=== PATIENT | male | born 1975 ===

== ENCOUNTER 2018-07-30 14:36 | Emergency (ER) | payer OTHER ==
[2018-07-30 14:42] VITALS: BP 150/81; PULSE 74; RESP 16; TEMP 98.2; O2SAT 100
--- NOTE | 2018-07-30 14:53 | ED PDOC ---
HPI: Male Pain Time Seen by Provider: 07/30/18 14:44 Chief Complaint (Nursing): Male Genitourinary Chief Complaint (Provider): dysuria History Per: Patient, Other (Friend at bedside is translating in Burmese as per patient request) History/Exam Limitations: no limitations Onset/Duration Of Symptoms: Days (x3) Current Symptoms Are (Timing): Still Present Associated Symptoms: Urinary Symptoms. denies: Nausea, Vomiting, Diarrhea, Constipation Additional Complaint(s): Mikey Mejía is a 42 year old male who is presenting to the ED for evaluation of dysuria associated with mild suprapubic pain x 3 days ago. Patient states that he has a history of UTIs with his last one 2 months ago, and reports no concern for possible STDs. Patient denies any penile discharge, nausea, vomiting, diarrhea, constipation, or genital rash or lesions. PMD: none Past Medical History Reviewed: Historical Data, Nursing Documentation, Vital Signs Vital Signs: Last Vital Signs Temp 98.2 F 07/30/18 14:39 Pulse 74 07/30/18 14:39 Resp 16 07/30/18 14:39 BP 150/81 07/30/18 14:39 Pulse Ox 100 07/30/18 14:39 - Medical History PMH: No Chronic Diseases - Surgical History Surgical History: No Surg Hx - Family History Family History: States: No Known Family Hx - Living Arrangements Living Arrangements: With Friends/Others - Social History Current smoker - smoking cessation education provided: No Alcohol: None Drugs: Denies - Home Medications Home Medications: Ambulatory Orders Medication Instructions Recorded Ciprofloxacin HCl [Cipro] 500 mg PO BID #14 tablet 07/30/18 - Allergies Allergies/Adverse Reactions: Allergies Allergy/AdvReac Type Severity Reaction Status Date / Time No Known Allergies Allergy Verified 03/06/16 20:18 Review of Systems ROS Statement: Except As Marked, All Systems Reviewed And Found Negative Gastrointestinal: Positive for: Abdominal Pain. Negative for: Nausea, Vomiting, Diarrhea, Constipation Genitourinary Male: Positive for: Dysuria. Negative for: Penile Discharge Skin: Negative for: Rash Physical Exam - Reviewed Nursing Documentation Reviewed: Yes Vital Signs Reviewed: Yes - Physical Exam Appears: Positive for: Well, Non-toxic, No Acute Distress Head Exam: Positive for: ATRAUMATIC, NORMAL INSPECTION, NORMOCEPHALIC Skin: Positive for: Normal Color. Negative for: Rash Eye Exam: Positive for: Normal appearance Gastrointestinal/Abdominal: Positive for: Normal Exam, Soft. Negative for: Tenderness, Distended, Guarding, Rebound Back: Positive for: Normal Inspection Neurologic/Psych: Positive for: Alert, Oriented. Negative for: Motor/Sensory Deficits - Laboratory Results Urine dip results: Negative for: Leukocyte Esterase, Blood, Nitrate, Ketones, Glucose, Bilirubin, Protein - ECG O2 Sat by Pulse Oximetry: 100 (RA) Pulse Ox Interpretation: Normal Medical Decision Making Medical Decision Making: Time: 14:50 Impression: 42 year old male with dysuria Plan: --ED Urine Dipstick --Chylamydia/GC RNA, TMA --Urine Culture Patient with history of UTIs presenting with dysuria. Prescription for Cipro provided, cultures were sent. Patient was referred to clinic for follow-up. Scribe Attestation: Documented by Marilyn Randall, acting as a scribe for Brandy Hamilton PA-C. Provider Scribe Attestation: All medical record entries made by the Scribe were at my direction and personally dictated by me. I have reviewed the chart and agree that the record accurately reflects my personal performance of the history, physical exam, medical decision making, and the department course for this patient. I have also personally directed, reviewed, and agree with the discharge instructions and disposition. Disposition - Clinical Impression Clinical Impression: Dysuria - Patient ED Disposition Is Patient to be Admitted: No Counseled Patient/Family Regarding: Studies Performed, Diagnosis, Need For Followup, Rx Given - Disposition Referrals: [facility] [Outside] Disposition: Routine/Home Disposition Time: 15:31 Condition: STABLE Additional Instructions: Take prescription meds as directed. Drink plenty of fluids. Follow-up with clinic in 2-3 days. Prescriptions: Ciprofloxacin HCl [Cipro] 500 mg PO BID #14 tablet Instructions: Dysuria, Adult (DC) Forms: [facility] [facility] (Burmese) Print Language: PERUVIAN
== END 2018-07-30 16:18 | disposition home or self-care (01) ==
LOC: H.ER 14:36
DX: R30.0 Dysuria (principal)

== ENCOUNTER 2019-02-16 20:00 | Emergency (ER) | payer OTHER ==
[2019-02-16 20:38] VITALS: BP 142/91; PULSE 96; RESP 15; TEMP 98.4; O2SAT 100
--- NOTE | 2019-02-16 21:35 | ED PDOC ---
HPI: Male Pain Time Seen by Provider: 02/16/19 20:58 Chief Complaint (Nursing): Male Genitourinary Chief Complaint (Provider): Urinary frequency History Per: Patient History/Exam Limitations: no limitations Onset/Duration Of Symptoms: Days Additional Complaint(s): 43 year old male presents to ED with urinary frequency x4 months. Patient denies associated dysuria, fever, chills, back pain, or penile discharge. Patient visited PMD who conducted an ultrasound and advised to set up appointment with urologist but patient is unsure why he has to see the urologist and has not secured the appointment yet. PMD: Bryan Birch Past Medical History Reviewed: Historical Data, Nursing Documentation, Vital Signs Vital Signs: Last Vital Signs Temp 98.4 F 02/16/19 20:36 Pulse 96 H 02/16/19 20:36 Resp 15 02/16/19 20:36 BP 142/91 H 02/16/19 20:36 Pulse Ox 100 02/16/19 20:36 Primary Care Provider: Bryan Birch - Medical History PMH: Gall Bladder Disease - Family History Family History: States: Unknown Family Hx - Immunization History Hx Tetanus Toxoid Vaccination: No Hx Influenza Vaccination: No Hx Pneumococcal Vaccination: No - Home Medications Home Medications: Ambulatory Orders Medication Instructions Recorded Ciprofloxacin HCl [Cipro] 500 mg PO BID #14 tablet 07/30/18 - Allergies Allergies/Adverse Reactions: Allergies Allergy/AdvReac Type Severity Reaction Status Date / Time No Known Allergies Allergy Verified 02/16/19 20:38 Review of Systems ROS Statement: Except As Marked, All Systems Reviewed And Found Negative Constitutional: Negative for: Fever, Chills Genitourinary Male: Positive for: Frequency (x4 months). Negative for: Dysuria, Penile Discharge Musculoskeletal: Negative for: Back Pain Physical Exam - Reviewed Nursing Documentation Reviewed: Yes Vital Signs Reviewed: Yes - Physical Exam Appears: Positive for: Non-toxic, No Acute Distress Head Exam: Positive for: ATRAUMATIC, NORMOCEPHALIC Skin: Positive for: Normal Color, Warm, Dry Eye Exam: Positive for: EOMI, Normal appearance, PERRL ENT: Positive for: Normal ENT Inspection Neck: Positive for: Normal, Painless ROM, Supple Cardiovascular/Chest: Positive for: Regular Rate, Rhythm. Negative for: Murmur Respiratory: Positive for: Normal Breath Sounds. Negative for: Respiratory Distress Gastrointestinal/Abdominal: Positive for: Normal Exam, Soft. Negative for: Tenderness Back: Positive for: Normal Inspection. Negative for: L CVA Tenderness, R CVA Tenderness, Vertebral Tenderness Extremity: Positive for: Normal ROM (upper and lower ). Negative for: Pedal Edema, Deformity Neurological/Psych: Positive for: Alert, Oriented (x3). Negative for: Motor/Sensory Deficits - Laboratory Results Result Diagrams: 02/16/19 21:49 02/16/19 21:49 - ECG O2 Sat by Pulse Oximetry: 100 (RA) Pulse Ox Interpretation: Normal Medical Decision Making Medical Decision Making: Time: 2129 Initial Impression: 43 y/o male with urinary frequency Initial Plan: --Labs(CMP, U-Dip, CBC, Chlamydia/GC RNA) --Urinalysis 2326 Labs reviewed and show no clinically significant abnormality. Patient is stable for discharge home and referred to urologist for followup. Scribe Attestation: Documented by Mat Schneider training under Kiara Ortiz, acting as a scribe for Michael Lopez MD. Provider Scribe Attestation: All medical record entries made by the Scribe were at my direction and personally dictated by me. I have reviewed the chart and agree that the record accurately reflects my personal performance of the history, physical exam, medical decision making, and the department course for this patient. I have also personally directed, reviewed, and agree with the discharge instructions and disposition. Disposition - Clinical Impression Clinical Impression: Urinary frequency - Patient ED Disposition Is Patient to be Admitted: No - Disposition Referrals: Adrian Shah Jr., MD [Staff Provider] - Disposition: Routine/Home Disposition Time: 23:26 Condition: STABLE Forms: [employer] (Cameroonian)
[2019-02-16 21:59] LABS: URINE BILIRUBIN NEGATIVE (NEGATIVE); URINE BLOOD NEGATIVE (NEGATIVE); URINE CLARITY CLEAR (Clear); URINE COLOR STRAW (YELLOW); URINE GLUCOSE (UA) NEG (NEGATIVE); URINE LEUKOCYTE ESTERASE NEG Leu/uL (Negative); URINE PROTEIN NEGATIVE (NEGATIVE); URINE UROBILINOGEN 0.2-1.0 mg/dL (0.2-1.0)
[2019-02-16 22:00] LABS: BASO % 0.6 % (0.0-2.0); EOS # 0.1 K/uL (0.0-0.7); EOS % 2.2 % (0.0-4.0); HEMOGLOBIN 14.3 g/dL (12.0-18.0); LYMPH # 1.8 K/uL (1.0-4.3); MEAN CELL VOLUME 89.2 fl (80.0-94.0); MEAN CORPUSCULAR HEMOGLOBIN 29.7 pg (27.0-31.0); MEAN CORPUSCULAR HGB CONC 33.3 g/dL (33.0-37.0); MEAN PLATELET VOLUME 7.9 fl (7.2-11.7); MONO # 0.4 K/uL (0.0-0.8); MONO % 6.6 % (0.0-10.0); NEUT # 3.3 K/uL (1.8-7.0); NEUT % 58.6 % (50.0-75.0); RBC 4.82 Mil/uL (4.40-5.90); RED CELL DISTRIBUTION WIDTH 13.4 % (11.5-14.5); WHITE BLOOD COUNT 5.6 K/uL (4.8-10.8)
[2019-02-16 22:11] LABS: SQUAMOUS EPITHIAL 1 /hpf (0-5)
[2019-02-16 22:12] LABS: URINE AMORPHOUS SEDIMENT FEW /ul (<OCC); URINE BACTERIA FEW (<OCC)
[2019-02-16 22:13] LABS: ALB/GLOB RATIO 1.5 (1.0-2.1); ALBUMIN 4.5 g/dL (3.5-5.0); ALT/SGPT 33 U/L (21-72); AST/SGOT 23 U/L (17-59); BLOOD UREA NITROGEN 15 mg/dl (9-20); CALCIUM 8.7 mg/dL (8.4-10.2); GFR NON-AFRICAN AMERICAN > 60
== END 2019-02-16 23:42 | disposition home or self-care (01) ==
LOC: H.ER 20:00
DX: R35.0 Frequency of micturition (principal)